=== PATIENT | male | born 1975 | race Caucasian/White ===

== ENCOUNTER 2020-12-07 11:40 | Emergency (ER) | payer OTHER ==
[2020-12-07] MEDS ORDERED: HYDROCODON-ACE1 EAC2 PO (15:48)
== END 2020-12-07 16:00 | disposition home or self-care (01) ==
LOC: ER1 11:40
DX: S82.002A Unspecified fracture of left patella, initial encounter for closed fracture (principal); I10 Essential (primary) hypertension; Z88.0 Allergy status to penicillin; Z98.890 Other specified postprocedural states; W01.0XXA Fall on same level from slipping, tripping and stumbling without subsequent striking against object, initial encounter; Y92.59 Other trade areas as the place of occurrence of the external cause
CPT/HCPCS: 29530; 73564; 73700; 99283